=== PATIENT | female | born 1965 | race Caucasian/White ===

== ENCOUNTER 2020-05-20 09:12 | Emergency (ER) | payer BC, SELFPAY ==
[2020-05-20 09:20] VITALS: BP 186/94; PULSE 116; RESP 18; TEMP 36.6; O2SAT 100
--- NOTE | 2020-05-20 09:21 | ED.ANIMALBIT ---
HPI - Animal Bite General Chief Complaint: Animal Bite Stated Complaint: dogbite to face Time Seen by Provider: 05/20/20 09:21 History of Present Illness HPI narrative: healthy 54 yo female presents to the ED for a dog bite. She accidentally startled her dog and he bit her on the left cheek. She sustained multiple small lacerations. The dog is up to date on all vaccinations. She has not had a recent tetanus shot. Related Data Home Medications Medication Instructions Recorded Confirmed sumatriptan succinate 4 mg SUBCUT ONCE PRN 05/20/20 Allergies Allergy/AdvReac Type Severity Reaction Status Date / Time codeine AdvReac Unknown Nausea Verified 05/20/20 09:27 Review of Systems Review of Systems: All systems reviewed & are unremarkable except as noted in HPI and below Eyes: Eyes: Denies change in vision Cardiovascular: Cardiovascular: Denies chest pain Respiratory: Respiratory: Denies dyspnea Neurologic: Denies confusion and Denies weakness PMFSH Past Medical History Medical History Colon cancer screening (~2016) Hypertension Migraine Surgical History Surgical History Hx of cholecystectomy (~1989) S/P partial hysterectomy Family History Family History Mother Hypertension Social History Social History Smoking status: Never smoker Second hand tobacco smoke exposure: No Alcohol intake: current Substance use: never Substance use type: does not use Gender identity (if verbalized by the patient): Female Exam Const: General: healthy appearing, no acute distress and alert Nutritional Appearance: well nourished Orientation/consciousness: patient oriented x3 HENMT: Other: 4 cm laceration into fat layer as well as 2 adjacent superficial lacerations on right cheek Eyes: Pupils: Equal, round and reactive pupils present EOM: EOMs intact bilaterally Resp: Effort & Inspection: normal respiratory effort Skin: General skin exam: normal color Neuro: General: patient oriented x3 and moves all extremities Speech: normal speech Gait exam (Neuro): Normal gait present Extrem: General: normal to inspection Course Vital Signs Vital signs: Vital Signs Temperature 36.6 C 05/20/20 09:20 Pulse Rate 116 H 05/20/20 09:20 Respiratory Rate 18 05/20/20 09:20 Blood Pressure 186/94 H 05/20/20 09:20 Pulse Oximetry 100 05/20/20 09:20 Temperature 36.6 C 05/20/20 09:20 Pulse Rate 116 H 05/20/20 09:20 Respiratory Rate 18 05/20/20 09:20 Blood Pressure 186/94 H 05/20/20 09:20 Pulse Oximetry 100 05/20/20 09:20 Procedures Laceration Laceration 1: Date: 05/20/20 Time: 10:45 Site: face Size (cm): 4 Description: linear Depth: simple, single layer Local Anesthetic: lidocaine 1% and with epi Pre-repair: irrigated ====== Skin Level ====== Skin layer closed with: other (fast gut) Size (cm): 5-0 Number of sutures: 6 Technique: simple, interrupted ====== Subcutaneous Layer ====== ====== Muscle Layer ====== ====== Tendon Layer ====== MDM - Animal Bite Differential Diagnosis Differential diagnosis: Likely dog bite Medical Records Attestation: I reviewed the patient's medical records. Lab Data Attestation: I reviewed the patient's lab results. Discharge Plan Discharge Clinical Impression: Dog bite Qualifiers: Encounter type: initial encounter Qualified Code(s): W54.0XXA - Bitten by dog, initial encounter Facial laceration Qualifiers: Encounter type: initial encounter Qualified Code(s): S01.81XA - Laceration without foreign body of other part of head, initial encounter Patient Disposition: Home, Self-Care Condition: Stable Instructio
[2020-05-20] MEDS: TETANUS,DIPHTHERIA,AC PERTUSSIS ADULT (0.5 ML) BOOSTRIX IM (09:41)
[2020-05-20] MEDS: AMOXICILLIN/CLAVULANATE K 875-125 MG TAB 1 TABLET PO (09:42)
[2020-05-20] MEDS: LIDO 1%/EPINEPHRINE 1:100,000 20 ML VIAL 3 ML INFILTRATE (10:13)
== END 2020-05-20 10:51 | disposition home or self-care (01) ==
PROVIDERS: Emergency Provider Emergency Medicine; PCP Family Medicine
DX: S01.452A Open bite of left cheek and temporomandibular area, initial encounter (principal); W54.0XXA Bitten by dog, initial encounter; I10 Essential (primary) hypertension; Z85.038 Personal history of other malignant neoplasm of large intestine; Z23 Encounter for immunization
CPT/HCPCS: 12013; 90471; 90715; 99283; A9270

== ENCOUNTER → 2020-08-04 17:37 | Outpatient (CLI) | payer BC, SELFPAY ==
--- NOTE | ~2020-08-04 | MM_ITS ---
EXAMINATION: MM screening [facility] BI w anurag HISTORY: Screening mammogram TECHNIQUE: Craniocaudal and mediolateral oblique 3-D tomosynthesis images were obtained and synthetic 2-D images were generated. CAD analysis was submitted and interpreted. COMPARISON: 02/24/2019, 12/19/2017, 11/21/2016 BREAST PARENCHYMAL COMPOSITION: There are scattered areas of fibroglandular density. FINDINGS: There is no evidence of suspicious mass, calcification, or architectural distortion to sugg est malignancy in either breast. There has been no suspicious interval change. IMPRESSION: 1. No mammographic evidence of malignancy. 2. Recommend routine screening mammography in one year. BI-RADS Category 1: Negative Reviewed, dictated and finalized at location A. MENTATION ANALYST
== END ==
PROVIDERS: Visit Provider Obstetrics & Gynecology Gynecology
DX: Z12.31 Encounter for screening mammogram for malignant neoplasm of breast (principal)
CPT/HCPCS: 77063; 77067

== ENCOUNTER 2021-03-06 08:49 | Outpatient (CLI) | payer BC, SELFPAY ==
--- NOTE | ~2021-03-06 | MR_ITS ---
EXAMINATION: MR cervical spine wo con DATE: 03/06/2021 09:50 INDICATION: Cervical radiculopathy. TECHNIQUE: Magnetic resonance imaging (MRI) of the cervical spine was performed without intravenous c ontrast. Sequences included sagittal T2-weighted FSE, sagittal STIR FSE, sagittal T1-weighted FSE, ax ial MERGE, and axial T2-weighted FSE. COMPARISON: None FINDINGS: There is 8 degrees levocurvature of cervical spine. There is kyphosis of cervical spine. Ve rtebral body heights are normal. There is moderately decreased disc height at C5-C6 and mildly decrea sed disc height at C6-C7. The spinal cord signal intensity is normal. The following disc levels are s pecifically discussed: C2-C3: The disc does not extend beyond the endplate margin. There is no uncovertebral joint osteoarth ritis. There is mild right and moderate left facet joint osteoarthritis. There is mild left neural fo raminal stenosis. There is no central canal stenosis. C3-C4: There is a right central extrusion. There is mild bilateral uncovertebral joint osteoarthritis . There is mild right and severe left facet joint osteoarthritis. There is mild left neural foraminal stenosis. There is mild central canal stenosis. C4-C5: There is a right central extrusion. There is mild bilateral uncovertebral joint osteoarthritis . There is mild bilateral facet joint osteoarthritis. There is mild right neural foraminal stenosis. There is mild central canal stenosis with ventral indentation of spinal cord. C5-C6: The disc is bulging. There is severe bilateral uncovertebral joint osteoarthritis. There is se ling bilateral facet joint osteoarthritis. There is mild bilateral neural foraminal stenosis. There i s moderate central canal stenosis with ventral and dorsal indentation of the spinal cord. C6-C7: The disc is bulging. There is mild right and moderate left uncovertebral joint osteoarthritis. There is mild bilateral facet joint osteoarthritis. There is mild right and moderate left neural for aminal stenosis. There is mild central canal stenosis with ventral indentation of spinal cord. C7-T1: The disc does not extend beyond the endplate margin. There is no uncovertebral joint osteoarth ritis. There is moderate and mild left facet joint osteoarthritis. There is mild right neural foramin al stenosis. There is no central canal stenosis. IMPRESSION: 1. Moderate cervical spondylosis. Reviewed, dictated and finalized at location A.
== END 2021-03-06 08:50 | disposition home or self-care (01) ==
PROVIDERS: PCP Family Medicine; Visit Provider Chiropractor
DX: M47.22 Other spondylosis with radiculopathy, cervical region (principal)
CPT/HCPCS: 72141

== ENCOUNTER 2021-03-28 15:38 | Emergency (ER) | payer BC, SELFPAY ==
--- NOTE | ~2021-03-28 | CT_ITS ---
EXAMINATION: CTA chest PE protocol DATE: 03/28/2021 22:22 INDICATION: Shortness of breath TECHNIQUE: Computed tomography angiography (CTA) of the chest was performed with 100 mL Omnipaque-350 intravenous contrast timed to evaluate the pulmonary arteries. Coronal maximum intensity projection 3D-reconstructions were created by the technologist. The dose-length product (DLP) was 175.76 mGy-cm. Automated exposure control and iterative reconstruction technique were employed. COMPARISON: None. FINDINGS: The pulmonary arteries are well-opacified. No pulmonary embolism is identified. There are d iffuse groundglass and nodular opacities throughout the lungs. There is no pleural effusion or pneumo thorax. No pathologically enlarged thoracic lymph nodes are identified. The heart size is normal. The re is moderate thoracic spondylosis. IMPRESSION: 1. No pulmonary embolus. 2. Diffuse lung disease in a pattern consistent with COVID 19 pneumonia. Reviewed, dictated and finalized at location A.
--- NOTE | ~2021-03-28 | XR_ITS ---
EXAMINATION: XR chest 2V DATE: 03/28/2021 17:30 INDICATION: Cough and fever TECHNIQUE: AP and lateral views of the chest are obtained. COMPARISON: None available FINDINGS: There are patchy opacities throughout all lung zones. There is no pleural effusion or pneum othorax. The cardiomediastinal silhouette is normal. There is moderate thoracic spondylosis. IMPRESSION: 1. Diffuse lung disease, consistent with pneumonia versus pulmonary edema. Reviewed, dictated and finalized at location A.
--- NOTE | 2021-03-28 16:46 | ECG_ITS ---
Measurements Intervals [place] Rate: 115 P: 14 NJ: 162 QRS: -9 QRSD: 81 T: 31 QT: 313 QTc: 434 Interpretive Statements SINUS TACHYCARDIA LEFT VENTRICULAR HYPERTROPHY AND ST-T CHANGE MINIMAL Q WAVES- HIGH LATERAL LEADS ABNORMAL ECG Electronically Signed On 03-28-2021 20:10:58 CDT by Darnell Brenner D.O.
[2021-03-28 16:52] VITALS: BP 135/87; PULSE 119; RESP 14; TEMP 38; O2SAT 99
[2021-03-28 17:25] LABS: Basophils Percent Auto 0.3 % (0.2-1.2); Hematocrit 46.1 % (37.0-47.0); Hemoglobin 16.4 g/dL (12.0-15.0); Immature Granulocyte Absolute 0.02 K/mm3 (0.00-0.031); Immature Granulocyte Percent A 0.3 % (0-0.5); Lymphocytes Absolute Auto 1.01 K/mm3 (0.9-3.2); Lymphocytes Percent Auto 13.1 % (18.3-44.2); Mean Corpuscular HGB Conc 35.6 g/dl (32-36); Mean Corpuscular Hemoglobin 31.1 pg (26-34); Mean Corpuscular Volume 87.3 fl (80-100); Mean Platelet Volume 9.4 fl (7.4-10.4); Monocytes Absolute Auto 0.5 K/mm3 (0.1-0.6); Monocytes Percent Auto 6.7 % (2.6-8.5); Neutrophils Absolute Auto 6.2 K/mm3 (1.3-6.7); Neutrophils Percent Auto 79.6 % (45.5-73.1); Platelet Count Result 240 k/mm3 (150-375); Red Blood Count 5.28 M/mm3 (4.2-5.4); Red Cell Distribution Width 11.6 % (11.5-14.5); White Blood Count 7.7 K/mm3 (4.5-10.0)
[2021-03-28 17:35] LABS: Add Urine Microscopic? YES; Appearance Urine Clear (Clear); Bacteria Urine Trace /hpf; Bilirubin Urine Negative (Negative); Blood Urine 3+ (Negative); Color Urine Amber (Yellow); Glucose Urine UA Negative (Negative); Ketones Urine 2+ mg/dL (Negative); Leukocyte Esterase Ur Negative LEU/UL (Negative); Mucus Urine Moderate /lpf; Nitrate Urine Negative (Negative); Protein Urine 2+ mg/dL (Negative); RBC Urine 21-50 /hpf (0-2); Specific Grav Ur 1.023 (1.001-1.035); Squamous Epithelial Cell Urine Few /hpf (Few)
[2021-03-28 17:41] LABS: Alanine Aminotransferase 69 U/L (4-35); Albumin Level 4.5 g/dL (3.5-5.1); Alkaline Phosphatase 129 U/L (38-126); Anion Gap 12 mmol/L (8-16); Aspartate Amino Transferase 106 U/L (14-36); Blood Urea Nitrogen 15 mg/dL (7-17); Calcium 8.7 mg/dL (8.4-10.2); Carbon Dioxide 25 mmol/L (22-30); Chloride 96 mmol/L (98-107); Estimated CRCL calculation 56 ml/min; Estimated Glomerular Filt Rate > 60; Glucose 116 mg/dL (65-110); Potassium 3.2 mmol/L (3.4-5.0); Sodium 133 mmol/L (137-145)
[2021-03-28 19:54] VITALS: BP 129/80; PULSE 112; RESP 15; TEMP 37.1; O2SAT 98
--- NOTE | 2021-03-28 20:44 | ED.GENADULT ---
HPI - General Adult General Chief complaint: Nausea/Vomiting/Diarrhea Stated complaint: dehydration Time Seen by Provider: 03/28/21 20:31 Source: patient and RN notes reviewed Mode of arrival: ambulatory Limitations: no limitations History of Present Illness HPI narrative: This is a 55 year old female who presents for evaluation of flu like symptoms. She developed cough, subjective fever chills body aches with nausea and diarrhea 5 days ago. She denies chest pain but she reports it feels hard to breath occasionally. She was found to have low grade fever . She states he has only taken some nisreen seltzer earlier today. She denies abdominal pain, vomiting, but reports 2 episodes of nonbloody diarrhea today. She has not been tested for COVID and she has not been vaccinated for covid either. Related Data Home Medications Medication Instructions Recorded Confirmed sumatriptan succinate 4 mg SUBCUT ONCE PRN 05/20/20 Allergies Allergy/AdvReac Type Severity Reaction Status Date / Time codeine AdvReac Unknown Nausea Verified 08/16/20 11:09 Review of Systems Review of Systems: All systems reviewed & are unremarkable except as noted in HPI and below Constitutional: Constitutional: Reports chills and Reports fever(s) Cardiovascular: Cardiovascular: Denies chest pain Respiratory: Respiratory: Reports cough and Reports dyspnea Gastrointestinal: Gastrointestinal: Denies abdominal pain, Reports diarrhea, Reports nausea and Denies vomiting Musculoskeletal: Musculoskeletal: Reports myalgias PMFSH Past Medical History Medical History Colon cancer screening (~2016) Hypertension Migraine Surgical History Surgical History Hx of cholecystectomy (~1989) S/P partial hysterectomy Family History Family History Mother Hypertension Social History Social History Smoking status: Never smoker Second hand tobacco smoke exposure: No Alcohol intake: current Substance use: never Substance use type: does not use Gender identity (if verbalized by the patient): Female Exam Narrative: GENERAL: Well-appearing, well-nourished, and in no acute distress. HEAD: Normocephalic, atraumatic EYES: PERRLA and EOMI, conjunctiva clear without discharge THROAT:Mucous membranes moist, Oropharynx normal without erythema, exudate, peritonsillar swelling or fluctuance NECK: Supple, without lymphadenopathy or mass RESPIRATORY: No respiratory distress, Airway patent, Respirations non-labored, Clear to auscultation without rales, rhonchi or wheeze HEART: Regular rate and rhythm. No murmur heard. Normal peripheral pulses. ABDOMEN: Soft, nontender, nondistended, normal active bowel sounds. No masses. No rebound or guarding, No organomegaly. EXTREMITIES: No edema, normal strength with full range of motion. SKIN: Warm, dry, normal color without rash NEURO: Alert and oriented x3. CN 2-12 grossly intact. No focal deficits. PSYCH: Normal mood and affect. Course Reevaluation(s) Reevaluation #1: I have discussed with patient that she likely has covid pneumonia. She does not require oxygen. Her oxygen saturation remained at 95 % on room air with ambulation. I Discussed she will be discharge home on antibiotics until covid test returns. She likely has covid. Date: 03/28/21 Time: 23:00 Vital Signs Vital signs: Vital Signs Temperature 100.4 F H 03/28/21 16:52 Pulse Rate 119 H 03/28/21 16:52 Respiratory Rate 14 03/28/21 16:52 Blood Pressure 135/87 03/28/21 16:52 Pulse Oximetry 99 03/28/21 16:52 Temperature 98.8 F 03/28/21 19:54 Pulse Rate 89 03/29/21 00:37 Respiratory Rate 18 03/29/21 00:37 Blood Pressure 124/72 03/29/21 00:37 Pulse Oximetry 99 03/29/21 00:37 Medica
[2021-03-28 20:51] VITALS: BP 142/80; PULSE 100; RESP 18; O2SAT 96
[2021-03-28] MEDS: LACTATED RINGERS 1,000 ML 999 ML IV CONT ×2 (21:00→22:50)
[2021-03-28] MEDS: POTASSIUM CHLORIDE 20 MEQ TABLET 40 MEQ PO (21:01)
[2021-03-28] MEDS: ONDANSETRON INJ 4 MG/2 ML VIAL IV PUSH (21:01)
[2021-03-28 21:27] LABS: Lactic Acid Reflex 1.3 mmol/L (0.7-2.1)
[2021-03-28 21:30] LABS: CRP 7.1 mg/dL (<1.0); Magnesium 1.8 mg/dL (1.6-2.3)
[2021-03-28 21:40] LABS: INR 0.9; Prothrombin Time 12.5 Seconds (11.1-14.7); Troponin I < 0.012 ng/mL (0.000-0.034)
[2021-03-28 21:41] LABS: Partial Thromboplastin Time 33.8 SECONDS (22.3-36.8)
[2021-03-28 21:43] LABS: D Dimer 0.79 ug/mL (<0.48)
[2021-03-28 22:51] VITALS: BP 124/72; PULSE 97; RESP 18; O2SAT 97
[2021-03-29 00:37] VITALS: BP 124/72; PULSE 89; RESP 18; O2SAT 99
[2021-03-30 01:27] LABS: SARS-CoV-2 RNA PCR Positive
--- NOTE | 2021-04-06 11:55 | PC.NURSE ---
LATE ENTRY This note is being entered to document information to the patient's record. The following information was omitted on [03/28/21], by []Yaya Frye RN. IVF infused at 2350 on 03/28/21
--- NOTE | 2021-04-09 00:01 | PC.NURSE ---
LATE ENTRY This note is being entered to document information to the patient's record. The following information was omitted on [],ns stop @ [id number] by [].
== END 2021-03-29 00:39 | disposition home or self-care (01) ==
PROVIDERS: Emergency Medicine; Emergency Provider General Practice; PCP Family Medicine
DX: U07.1 COVID-19 (principal); J12.82 Pneumonia due to coronavirus disease 2019; E86.0 Dehydration; I10 Essential (primary) hypertension
CPT/HCPCS: 36415; 71046; 71275; 80053; 81001; 81025; 83605; 83735; 84484; 85025; 85380; 85610; 85730; 86140; 87804; 93005; 96361; 96374; 99284; A9270; C9803; J2405; J7120; Q9967; U0003; U0005

== ENCOUNTER → 2022-03-07 09:44 | Outpatient (CLI) | payer BC, SELFPAY ==
[2022-03-07 12:52] LABS: Influenza A QL RT-PCR Negative (Negative); Influenza B QL RT-PCR Negative (Negative); SARS-CoV-2 RNA PCR Negative
== END ==
PROVIDERS: PCP Family Medicine; Visit Provider Family Medicine
DX: Z20.822 Contact with and (suspected) exposure to COVID-19 (principal); J06.9 Acute upper respiratory infection, unspecified
CPT/HCPCS: 87502; C9803; U0003; U0005

== ENCOUNTER 2024-08-30 07:45 | Outpatient (CLI) | payer BC, SELFPAY | END 2024-08-30 07:46 | disposition home or self-care (01) | LOC: MICIMG 07:46 | PROVIDERS: PCP Family Medicine; Visit Provider Nurse Practitioner | DX: Z12.31 Encounter for screening mammogram for malignant neoplasm of breast (principal) | CPT/HCPCS: 77063; 77067 ==